=== PATIENT | male | born 1935 | race Caucasian/White ===

== ENCOUNTER → 2017-01-16 | Outpatient (CLI) | payer OTHER, MEDICARE ==
[~2017-01-16] MED LIST: ALBUAER19; ASCA500 PO; CMD5 PO; DIGO0.122 PO; FRS/40 PO; LSN25 PO; METO2.5T PO; METO25TA3 PO; NITR0.2D TD; NTRGSL/4 UT; POTA-335 PO; SELENIUM; SIMV80TA2 PO; SYMIN160 INH; TIOTCAP INH
[2017-01-16 15:29] LABS: INR 2.7 (0.9-1.1); PROTHROMBIN TIME (PATIENT) 29.7 SECONDS (9.0-12.0)
== END | disposition home or self-care (01) ==
LOC: C.LABSPEC 15:02
PROVIDERS: ATTEND Family Medicine Adult Medicine
DX: I48.91 Unspecified atrial fibrillation (principal)